=== PATIENT | male | born 1960 | race Caucasian/White ===

== ENCOUNTER 2021-05-20 08:51 | Emergency (ER) | payer BC ==
--- NOTE | 2021-05-20 09:20 | EDM.PDOC ---
ED HPI GENERAL MEDICAL PROBLEM - General Chief Complaint: Neuro Symptoms/Deficits Stated Complaint: [facility] Time Seen by Provider: 05/20/21 08:51 - History of Present Illness INITIAL COMMENTS - FREE TEXT/NARRATIVE: 61-year-old male brought in by EMS. Stroke alert called. Last known normal 8:00. Patient complains of left hand numbness. This is improving. Patient has had a history of a small TIA in the past. Patient has not had any symptoms up his arm elbow or shoulder. He has had no lower extremity weakness or numbness.. The patient felt good when he woke up this morning when he was driving into work he developed the numbness in his hand only. The patient cannot recall if he took his blood pressure medication this morning but he said he was a little worked up dealing with a upset coworker. He has not had any palpitations chest discomfort or breathing difficulties. The patient's had ongoing blood pressure problems he attributes a lot of this to gaining a bunch of weight. - Related Data Allergies Allergy/AdvReac Type Severity Reaction Status Date / Time No Known Allergies Allergy Verified 05/20/21 09:15 Home Meds: Home Meds Losartan [Cozaar] 25 mg PO DAILY 11/06/20 [History] Aspirin 650 mg PO 05/20/21 [History] atorvaSTATin [Lipitor] 20 mg PO BEDTIME 05/20/21 [History] Past Medical History HEENT History: Reports: None Cardiovascular History: Reports: High Cholesterol, Hypertension Respiratory History: Reports: None Gastrointestinal History: Reports: None Genitourinary History: Reports: None Musculoskeletal History: Reports: None Neurological History: Reports: None Psychiatric History: Reports: None Endocrine/Metabolic History: Reports: None Hematologic History: Reports: None Oncologic (Cancer) History: Reports: None Dermatologic History: Reports: None - Infectious Disease History Infectious Disease History: Reports: Chicken Pox - Past Surgical History Head Surgeries/Procedures: Reports: None Social & Family History - Family History Family Medical History: No Pertinent Family History - Caffeine Use Caffeine Use: Reports: Coffee ED ROS GENERAL - Review of Systems Review Of Systems: See Below Constitutional: Reports: No Symptoms HEENT: Reports: No Symptoms Respiratory: Reports: No Symptoms Cardiovascular: Reports: No Symptoms Endocrine: Reports: No Symptoms : Reports: No Symptoms Musculoskeletal: Reports: No Symptoms Skin: Reports: No Symptoms Neurological: Reports: Other (Numbness without weakness involving the left hand only) Psychiatric: Reports: No Symptoms ED EXAM, GENERAL - Physical Exam Exam: See Below General Appearance: Alert, No Apparent Distress Eye Exam: Bilateral Eye: Normal Inspection Ears: Normal External Exam, Normal Canal, Hearing Grossly Normal, Normal TMs Nose: Normal Inspection, Normal Mucosa, No Blood Throat/Mouth: Normal Inspection, Normal Lips, Normal Teeth, Normal Gums, Normal Oropharynx, Normal Voice, No Airway Compromise Head: Atraumatic, Normocephalic Neck: Normal Inspection, Supple, Non-Tender. No: Lymphadenopathy (L), Lymphadenopathy (R) Respiratory/Chest: No Respiratory Distress, Lungs Clear, Normal Breath Sounds Cardiovascular: Normal Peripheral Pulses, Regular Rate, Rhythm, No Edema GI/Abdominal: Normal Bowel Sounds, Soft, Non-Tender Extremities: Normal Inspection, Other (She has numbness albeit he says it is getting better involving his left hand at this point it seems to be a little more prominent on the radial aspect than on the fifth finger) Neurological: Alert, Oriented, Normal Cognition, Sensory/Motor Deficit (This involving the left hand only. Tinel's negative), Other (No obvious weakness) Psychiatric: Normal Affect, Normal Mood #1 Interpretation EKG Date: 05/20/21 Rhythm: Other (Sinus rhythm with a single PVC) Rate (Beats/Min): 73 [place]: Normal P-Wave: Present QRS: Normal ST-T: Normal QT: Normal WA/PQ Interval: First-degree AV block Comparison: No Change (No significant changes from November 06, 2020) Course - Vital Signs Last Recorded V/S: Last Vital Signs Temp 35.8 C L 05/20/21 09:05 Pulse 78 05/20/21 10:50 Resp 16 05/20/21 10:50 BP 171/95 H 05/20/21 10:50 Pulse Ox 95 05/20/21 10:50 - Orders/Labs/Meds Labs: Laboratory Tests 05/20/21 05/20/21 05/20/21 Range/Units 09:00 09:00 09:03 WBC 9.09 H (4.23-9.07) K/mm3 RBC 5.36 (4.63-6.08) M/mm3 Hgb 15.9 (13.7-17.5) gm/dl Hct 49.4 (40.1-51.0) % MCV 92.2 (79.0-92.2) fl MCH 29.7 (25.7-32.2) pg MCHC 32.2 (32.2-35.5) g/dl RDW Std Deviation 41.5 (35.1-43.9) fL Plt Count 311 (163-337) K/mm3 MPV 9.7 (9.4-12.3) fl Neut % (Auto) 66.9 (34.0-67.9) % Lymph % (Auto) 20.9 L (21.8-53.1) % [place] % (Auto) 9.9 (5.3-12.2) % Eos % (Auto) 1.2 (0.8-7.0) Baso % (Auto) 0.7 (0.1-1.2) % Neut # (Auto) 6.08 H (1.78-5.38) K/mm3 Lymph # (Auto) 1.90 (1.32-3.57) K/mm3 [place] # (Auto) 0.90 H (0.30-0.82) K/mm3 Eos # (Auto) 0.11 (0.04-0.54) K/mm3 Baso # (Auto) 0.06 (0.01-0.08) K/mm3 PT (9.7-12.0) SECONDS INR APTT (21.7-31.4) SECONDS Sodium 134 L (136-145) mEq/L Potassium 4.1 (3.5-5.1) mEq/L Chloride 100 (98-107) mEq/L Carbon Dioxide 28 (21-32) mEq/L Anion Gap 10.1 (5-15) BUN 16 (7-18) mg/dL Creatinine 1.1 (0.7-1.3) mg/dL Est Cr Clr Drug Dosing 84.07 mL/min Estimated GFR (MDRD) > 60 (>60) mL/min BUN/Creatinine Ratio 14.5 (14-18) Glucose 149 H (70-99) mg/dL POC Glucose 143 H (70-99) mg/dL Calcium 9.2 (8.5-10.1) mg/dL Total Bilirubin 0.5 (0.2-1.0) mg/dL AST 13 L (15-37) U/L ALT 30 (16-63) U/L Alkaline Phosphatase 95 (46-116) U/L Troponin I < 0.017 (0.00-0.056) ng/mL Total Protein 7.8 (6.4-8.2) g/dl Albumin 3.9 (3.4-5.0) g/dl Globulin 3.9 gm/dL Albumin/Globulin Ratio 1.0 (1-2) 05/20/21 Range/Units 09:26 WBC (4.23-9.07) K/mm3 RBC (4.63-6.08) M/mm3 Hgb (13.7-17.5) gm/dl Hct (40.1-51.0) % MCV (79.0-92.2) fl MCH (25.7-32.2) pg MCHC (32.2-35.5) g/dl RDW Std Deviation (35.1-43.9) fL Plt Count (163-337) K/mm3 MPV (9.4-12.3) fl Neut % (Auto) (34.0-67.9) % Lymph % (Auto) (21.8-53.1) % [place] % (Auto) (5.3-12.2) % Eos % (Auto) (0.8-7.0) Baso % (Auto) (0.1-1.2) % Neut # (Auto) (1.78-5.38) K/mm3 Lymph # (Auto) (1.32-3.57) K/mm3 [place] # (Auto) (0.30-0.82) K/mm3 Eos # (Auto) (0.04-0.54) K/mm3 Baso # (Auto) (0.01-0.08) K/mm3 PT 10.2 (9.7-12.0) SECONDS INR < 0.93 APTT 27.2 (21.7-31.4) SECONDS Sodium (136-145) mEq/L Potassium (3.5-5.1) mEq/L Chloride (98-107) mEq/L Carbon Dioxide (21-32) mEq/L Anion Gap (5-15) BUN (7-18) mg/dL Creatinine (0.7-1.3) mg/dL Est Cr Clr Drug Dosing mL/min Estimated GFR (MDRD) (>60) mL/min BUN/Creatinine Ratio (14-18) Glucose (70-99) mg/dL POC Glucose (70-99) mg/dL Calcium (8.5-10.1) mg/dL Total Bilirubin (0.2-1.0) mg/dL AST (15-37) U/L ALT (16-63) U/L Alkaline Phosphatase (46-116) U/L Troponin I (0.00-0.056) ng/mL Total Protein (6.4-8.2) g/dl Albumin (3.4-5.0) g/dl Globulin gm/dL Albumin/Globulin Ratio (1-2) Meds: Medications Discontinued Medications Generic Name Dose Route Start Last Admin Trade Name Riya PRN Reason Stop Dose Admin Alteplase, Recombinant Confirm 05/20/21 10:02 Alteplase 100 Mg Vial Administered 05/20/21 10:03 Dose 100 mg .ROUTE .STK-MED ONE Alteplase, Recombinant 9 mg 05/20/21 10:15 05/20/21 10:18 Alteplase 100 Mg Vial IVPUSH 05/20/21 10:16 9 mg .BOLUS ONE Administration Alteplase, Recombinant 81 mg/ 0 mls @ 0 mls/hr 05/20/21 10:05 05/20/21 10:20 Alteplase, Recombinant IV 05/20/21 10:06 81 mls/hr .INFUSION ONE Administration - Re-Assessments/Exams Free Text/Narrative Re-Assessment/Exam: 05/20/21 09:47 Notified By nursing that the patient now has difficulty speaking left facial weakness on the left side. I went in and reevaluated the patient he does have marked weakness on the left side difficulty speaking and left facial weakness. Has a stroke score of 11. patient does not appear to have any contraindications to thrombolytic therapy at this time no recent surgeries no anticoagulation however he did take aspirin 650 mg this morning. 05/20/21 09:59 Case reviewed with with on-call neurology at [facility] in [place], Dr. Parmar recommends TPA at this point. [facility] was going to try and accept the patient however they determined they have no beds and cannot take him to the emergency room at this point. I am checking with [facility]. [facility] does have a bed in ICU. Will discuss with their emergency room physician. Have the opportunity discussed the risk and benefits with TPA with the patient and he agrees to giving it a try. Explained to him in no uncertain terms of the risk could be bleeding and some of this can be fatal. Departure - Departure Time of Disposition: 10:26 Disposition: DC/Tfer to [facility] 02 Clinical Impression: Cerebrovascular accident (CVA) - Discharge Information Referrals: PCP,None [Primary Care Provider] - Forms: ED Department Discharge Sepsis Event Note (ED) - Focused Exam Vital Signs: Vital Signs Temp Pulse Resp BP Pulse Ox 05/20/21 10:50 78 16 171/95 H 95 05/20/21 10:45 75 19 158/88 H 94 L 05/20/21 10:40 77 14 151/90 H 98 05/20/21 10:35 71 17 148/97 H 93 L 05/20/21 10:28 75 19 164/89 H 94 L 05/20/21 10:15 74 17 173/87 H 95 05/20/21 09:31 75 14 153/89 H 98 05/20/21 09:05 35.8 C L 80 18 162/98 H 98
--- NOTE | 2021-05-20 09:34 | CR ---
Chest: AP view of the chest was obtained. Comparison: No prior chest imaging is available. Slight linear density is seen within the left lung base presumably due to atelectasis. Lungs otherwise are clear with no acute parenchymal change. Heart size is normal. Upper mediastinum shows nothing acute. No acute osseous finding is seen. Impression: 1. Slight left basilar atelectasis. 2. Nothing acute is seen on AP chest x-ray. Diagnostic code #1
--- NOTE | 2021-05-20 09:34 | CT ---
Head CT Technique: Multiple axial sections through the brain were obtained. Intravenous contrast was not utilized. Reconstructed coronal and sagittal images were obtained. Comparison: No prior intracranial imaging is available. Findings: Ventricles along with basal cisterns and sulci over the convexities are within normal limits for the patient's age. No abnormal parenchymal densities are seen. No evidence of intracranial hemorrhage is seen. No midline shift or mass-effect is seen. Bone window settings were reviewed. Visualized mastoid sinuses and paranasal sinuses are clear. No acute calvarial abnormality is appreciated. Impression: 1. Nothing acute is seen on noncontrast head CT study. 2. Please correlate if patient's symptoms warrant further evaluation by brain MRI. Diagnostic code #1
[2021-05-20] MEDS ORDERED: Alteplase 81 MG in Infusion 1 VIAL IV ONE (10:05)
== END 2021-05-20 11:15 ==
LOC: JD.ED 08:51
DX: I63.9 Cerebral infarction, unspecified (principal); I10 Essential (primary) hypertension; E78.00 Pure hypercholesterolemia, unspecified; I44.0 Atrioventricular block, first degree; Z79.899 Other long term (current) drug therapy
CPT/HCPCS: 36415; 37195; 70450; 71045; 80053; 82947; 84484; 85025; 85610; 85730; 93005; 99285; J2997; 93010